=== PATIENT | female | born 1935 | race Caucasian/White ===

== ENCOUNTER 2023-05-07 23:11 | Emergency (ER) | payer OTHER, BC ==
[~2023-05-07 23:11] MED LIST: LIDOCAINE PATCH REMOVAL MC SCH
[2023-05-07 23:43] VITALS: BP 133/73; PULSE 74; RESP 18; TEMP 96; BMI 20.5
[2023-05-07] MEDS ORDERED: ACETAMINOPHEN 500 MG TABLET (FP) PO ONE (23:50)
[2023-05-07] MEDS ORDERED: LIDOCAINE 5% TOPICAL PATCH TP ONE (23:51)
[2023-05-07] MEDS ORDERED: LIDOCAINE 4% PATCH TP ONE (23:55)
[2023-05-08 00:52] LABS: BASO % 0.7 % (0-2.0); EOS % 1.1 % (0-4.5); HEMATOCRIT 34.3 % (32.4-45.2); HEMOGLOBIN 11.5 GM/dL (10.7-15.3); LYMPH % 13.1 % (8-40); MCH 28.6 pg (25.7-33.7); MCHC 33.4 g/dl (32.0-36.0); MEAN CELL VOLUME 85.7 fl (80-96); MEAN PLT VOLUME 8.6 fl (7.5-11.1); MONO % 6.3 % (3.8-10.2); NEUT % 78.8 % (42.8-82.8); PLATELET COUNT 285 10^3/uL (134-434); RDW 15.5 % (11.6-15.6)
[2023-05-08] MEDS ORDERED: ACETAMINOPHEN 650 MG/20.3 ML ORAL SOLUTION (CUPS) ONE (00:53)
[2023-05-08 01:10] LABS: POTASSIUM 4.8 mmol/L (3.5-5.1)
[2023-05-08 01:12] LABS: CALCIUM 9.5 mg/dL (8.5-10.1)
[2023-05-08 01:13] LABS: ALBUMIN 3.8 g/dl (3.4-5.0); MAGNESIUM 2.1 mg/dL (1.8-2.4)
[2023-05-08 01:16] LABS: CREATININE 1.5 mg/dL (0.55-1.3)
[2023-05-08 01:19] LABS: BILIRUBIN,TOTAL 0.3 mg/dL (0.2-1); PHOSPHOROUS 3.4 mg/dL (2.5-4.9); TOT PROT 6.8 g/dl (6.4-8.2)
[2023-05-08] MEDS ORDERED: ACETAMINOPHEN 500 MG TABLET (FP) ONE (01:21)
[2023-05-08 01:31] LABS: URINE APPEARANCE CLEAR; URINE BILIRUBIN NEGATIVE (NEGATIVE); URINE COLOR YELLOW; URINE GLUCOSE (UA) NEGATIVE (NEGATIVE); URINE KETONE NEGATIVE (NEGATIVE); URINE LEUK ESTERASE NEGATIVE (NEGATIVE); URINE NITRITE NEGATIVE (NEGATIVE); URINE PROTEIN NEGATIVE (NEGATIVE); URINE UROBILINOGEN 0.2 mg/dL (0.2-1.0)
== END 2023-05-08 02:45 | disposition home or self-care (01) ==
LOC: JER 23:11
DX: M54.50 Low back pain, unspecified (principal); R26.2 Difficulty in walking, not elsewhere classified; Z20.822 Contact with and (suspected) exposure to COVID-19
CPT/HCPCS: 0241U-QW; 36415; 71045-TC-FY; 80053; 81003; 83735; 84100; 85025; 87086; 99284-25

== ENCOUNTER 2023-07-02 12:32 | Emergency (ER) | payer OTHER, BC ==
[2023-07-02 12:46] VITALS: BP 130/67; PULSE 72; RESP 20; TEMP 98.7; BMI 23.6
[2023-07-02] MEDS ORDERED: HALOPERIDOL LACTATE 5 MG/ML ONE (13:25)
[2023-07-02] MEDS: HALOPERIDOL LACTATE 5 MG/ML IM ONE (13:35)
[2023-07-02 13:54] LABS: HEMATOCRIT 36.1 % (32.4-45.2); HEMOGLOBIN 11.7 G/dL (10.7-15.3); MCH 28.7 pg (25.7-33.7); MCHC 32.3 g/dl (32.0-36.0); MEAN CELL VOLUME 88.8 fl (80-96); MEAN PLT VOLUME 9.7 fl (7.5-11.1); PLATELET COUNT 275.8 10^3/uL (134-434); RBC 4.06 10^6/uL (3.60-5.2); RDW 16.7 % (11.6-15.6); WHITE BLOOD COUNT 9.7 10^3/uL (4.0-10.8)
[2023-07-02 14:00] LABS: PLATELET ESTIMATE ADEQUATE
[2023-07-02 14:34] LABS: ALBUMIN 3.7 g/dl (3.4-5.0); BILIRUBIN,TOTAL 0.3 mg/dl (0.2-1); CALCIUM 8.7 mg/dl (8.5-10.1); CREATININE 1.6 mg/dl (0.6-1.3); POTASSIUM 4.1 mmol/L (3.5-5.1); TOT PROT 5.5 g/dl (6.4-8.2)
[2023-07-02 15:47] LABS: N-TERMINAL BNP 294.3 pg/ml (5-450)
[2023-07-02 16:28] LABS: EPITHELIAL CELLS 0-5 /hpf
== END 2023-07-02 17:03 | disposition home or self-care (01) ==
LOC: FER 12:32
PROC: 3E023GC Introduction of Other Therapeutic Substance into Muscle, Percutaneous Approach (ICD-10-PCS; principal; 2023-07-02)
PROC: 3E023GC Introduction of Other Therapeutic Substance into Muscle, Percutaneous Approach (ICD-10-PCS; 2023-07-02)
DX: R22.42 Localized swelling, mass and lump, left lower limb (principal); R41.9 Unspecified symptoms and signs involving cognitive functions and awareness; R10.9 Unspecified abdominal pain; N39.0 Urinary tract infection, site not specified; Z20.822 Contact with and (suspected) exposure to COVID-19
CPT/HCPCS: 0241U-QW; 36415; 71045-TC-FY; 74176-TC; 80053; 81003; 81015; 83880; 84484; 85027; 87077; 87086; 93971-TC; 99285-25